=== PATIENT | male | born 1955 | race African-American/Black ===

== ENCOUNTER 2016-10-14 09:20 | Emergency (ER) | payer MEDICARE, MEDICAID ==
[~2016-10-14 09:20] MED LIST: Iopamidol 370 76% 100 ML VIAL ONE
[2016-10-14 10:09] LABS: #Basophils 0.1 thou/uL (0.0-0.2); #Lymphocytes 2.2 thou/uL (1.20-3.40); #Monocytes 0.7 thou/uL (0.11-0.59); #Neutrophils 5.7 thou/uL (1.40-6.50); %Eosinophils 0.5 % (0.0-10.0); %Lymphocytes 25.7 % (21.0-51.0); %Monocytes 8.1 % (0.0-10.0); %Neutrophils 64.7 % (42.0-75.0); Hemoglobin 13.2 g/dL (14.0-18.0); Mean Corpuscular HGB CONC 31.6 g/dL (32.0-36.0); Mean Corpuscular Hemoglobin 28.7 pg (27.0-31.0); Mean Corpuscular Volume 90.6 fl (80.0-94.0); Mean Platelet Volume 8.2 fL (7.4-10.4); Platelet Count 222 thou/uL (130-400); RBC Distribution Width 15.5 % (11.5-14.5); White Blood Cell (WBC) Count 8.7 thou/uL (4.8-10.8)
[2016-10-14 10:17] LABS: CKMB 1.3 ng/mL (0-6.6); Troponin I Less than 0.010 ng/mL (< 0.028)
[2016-10-14 10:31] LABS: PTT 24.8 SEC (22.9-36.1); Prothrombin Time 13.4 SEC (12.0-14.7)
[2016-10-14 10:32] LABS: ALT (SGPT) 12 U/L (0-55); AST (SGOT) 17 U/L (5-34); Albumin 3.8 g/dL (3.5-5.0); Alkaline Phosphatase 80 U/L (40-150); Anion Gap 14 mmol/L (10-20); BUN (Urea Nitrogen) 14 mg/dL (8.4-25.7); Bilirubin, Total 0.3 mg/dL (0.2-1.2); Calc. Creatinine Clearance 0 mL/min (70-130); Calcium 9.8 mg/dL (7.8-10.44); Carbon Dioxide 26 mmol/L (22-29); Chloride 105 mmol/L (98-107); Estimated GFR-MDRD 86; Globulin 3.2 g/dL (2.4-3.5); Glucose 89 mg/dL (70-105); Potassium 4.2 mmol/L (3.5-5.1); Sodium 141 mmol/L (136-145)
--- NOTE | 2016-10-14 10:50 | RAD ---
ONE VIEW CHEST: History: Left leg pain and swelling above the knee x 1 week. Comparison: 11-17-15 FINDINGS: Portable semi-upright chest demonstrates a normal cardiac silhouette. The pulmonary vessels and hilu m are normal. No mass. No consolidation. No pneumothorax or osseous abnormality. IMPRESSION: No acute cardiopulmonary process. POS: [facility]
--- NOTE | 2016-10-14 10:55 | ULT ---
LEFT LOWER EXTREMITY VENOUS ULTRASOUND WITH DOPPLER: Comparison: 11-18-15 History: Patient is on blood thinners. Left leg pain. History of DVT. Technique: Grayscale, color flow, doppler imaging with spectral wave form analysis performed of the left lower extremity venous system. FINDINGS: There is partial compressibility and echogenic material in the common femoral vein. There is absence of compressibility in the profunda femoral vein. There appears to be echogenic material. Flow is no vanessa. The proximal femoral vein is patent. There is echogenic material and partial compressibility of the mid and distal femoral vein. There is compressibility and flow in the popliteal vein. There is flow in the venous trifurcation. There is flow in the visualized posterior tibial vein. There is lourdes w in the iliac vein and greater saphenous vein. IMPRESSION: Echogenic material and partial compressibility involving the left lower extremity deep venous system as above. 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 POS: [facility]
--- NOTE | 2016-10-14 11:12 | CT ---
CT ANGIOGRAM OF THE CHEST: Date: 10/14/16 COMPARISON: 11/18/15. HISTORY: Left leg pain and swelling above the knee x1 week. Patient has a history of deep venous thrombosis. Exertional chest pain and shortness of breath. Patient has a history of previous pulmonary artery em boli. TECHNIQUE: CT angiogram of the chest performed in the axial plane. Coronal reformatted images of bilateral obli que three-dimensional maximum intensity projection images are submitted for interpretation. FINDINGS: No mediastinal mass, lymphadenopathy, or hematoma. Heart size is within normal limits. No pericardia l effusion. There are coronary artery calcifications. Visualized aorta has an overall normal caliber . There is atherosclerotic disease. No aneurysm or dissection. No periaortic fat stranding. The orig in of the great vessels of the neck are grossly unremarkable. There are nonspecific ground-glass opacities involving the dependent portion of both lower lobes. Ad ditional areas of scarring are noted in the left lower lobe and lingula. No mass. No consolidation. No pleural effusion or pneumothorax. Trachea and central bronchi are patent. Visualized upper solid abdominal organs are grossly unremarkable. There is adequate contrast opacification of the pulmonary arterial system to the level of the segmen nimco arteries. No filling defect to suggest thromboembolism. IMPRESSION: 1. Chronic changes of lung parenchyma. 2. No evidence of pulmonary artery embolism to the level of the segmental arteries. POS: [facility]
== END 2016-10-14 11:29 | disposition home or self-care (01) ==
LOC: NAV ERS 09:20
DX: I82.502 Chronic embolism and thrombosis of unspecified deep veins of left lower extremity (principal); I10 Essential (primary) hypertension; E78.5 Hyperlipidemia, unspecified; F17.210 Nicotine dependence, cigarettes, uncomplicated; Z79.899 Other long term (current) drug therapy
CPT/HCPCS: 71010; 71275; 80053; 82553; 84484; 85025; 85610; 85730; 93005

== ENCOUNTER 2017-02-25 11:24 | Emergency (ER) | payer MEDICARE ==
[2017-02-25 12:32] LABS: #Basophils 0.1 thou/uL (0.0-0.2); #Lymphocytes 1.8 thou/uL (1.20-3.40); #Monocytes 0.5 thou/uL (0.11-0.59); #Neutrophils 4.2 thou/uL (1.40-6.50); %Basophils 1.3 % (0.0-1.0); %Eosinophils 0.5 % (0.0-10.0); %Lymphocytes 27.4 % (21.0-51.0); %Monocytes 7.2 % (0.0-10.0); %Neutrophils 63.5 % (42.0-75.0); Hemoglobin 13.1 g/dL (14.0-18.0); Mean Corpuscular HGB CONC 31.6 g/dL (32.0-36.0); Mean Corpuscular Hemoglobin 28.6 pg (27.0-31.0); Mean Corpuscular Volume 90.4 fl (80.0-94.0); Mean Platelet Volume 7.7 fL (7.4-10.4); Platelet Count 218 thou/uL (130-400); RBC Distribution Width 15.4 % (11.5-14.5); Red Blood Cell (RBC) Count 4.57 mill/uL (4.70-6.10); White Blood Cell (WBC) Count 6.6 thou/uL (4.8-10.8)
[2017-02-25 12:40] LABS: ALT (SGPT) 11 U/L (8-55); AST (SGOT) 18 U/L (5-34); Albumin 3.6 g/dL (3.5-5.0); Alkaline Phosphatase 69 U/L (40-150); Anion Gap 12 mmol/L (10-20); BUN (Urea Nitrogen) 8 mg/dL (8.4-25.7); Bilirubin, Total 0.6 mg/dL (0.2-1.2); Calc. Creatinine Clearance 0 mL/min (70-130); Calcium 9.6 mg/dL (7.8-10.44); Carbon Dioxide 26 mmol/L (22-29); Chloride 105 mmol/L (98-107); Estimated GFR-MDRD Greater than 90; Globulin 2.8 g/dL (2.4-3.5); Glucose 134 mg/dL (70-105); Potassium 3.8 mmol/L (3.5-5.1); Protein, Total 6.4 g/dL (6.0-8.3); Sodium 139 mmol/L (136-145)
--- NOTE | 2017-02-25 12:50 | RAD ---
TWO VIEWS LEFT HIP 02/25/2017 HISTORY: Left hip pain. FINDINGS: There is osteoarthritis involving the left hip. No fracture or dislocation is seen. Vascular calci fications and phleboliths overlie the pelvis. IMPRESSION: Left hip osteoarthritis without evidence of an acute osseous abnormality. POS: [facility]
--- NOTE | 2017-02-25 12:54 | RAD ---
TWO VIEWS LEFT KNEE 02/25/2017 HISTORY: Bilateral leg pain greater on the left. FINDINGS: There is tricompartment osteophytosis. There is mild narrowing of the medial joint compartment as w ell as patellofemoral joint. Calcifications overlie the medial aspect of the medial joint compartme nt likely related to chondrocalcinosis. There is no fracture or dislocation seen. There is suggest ion of a small joint effusion. Vascular calcifications are seen in the region of the tibioperoneal vessels. No other findings. IMPRESSION: 1. Osteoarthritis and chondrocalcinosis. 2. No acute osseous abnormality. 3. Small joint effusion. POS: [facility]
== END 2017-02-25 13:03 | disposition home or self-care (01) ==
LOC: NAV ERS 11:24
DX: M16.12 Unilateral primary osteoarthritis, left hip (principal); M25.462 Effusion, left knee; E78.5 Hyperlipidemia, unspecified; I10 Essential (primary) hypertension; F17.210 Nicotine dependence, cigarettes, uncomplicated; Z79.891 Long term (current) use of opiate analgesic; Z79.01 Long term (current) use of anticoagulants; Z79.899 Other long term (current) drug therapy
CPT/HCPCS: 80053; 85025; 85379

== ENCOUNTER 2017-04-19 14:46 | Emergency (ER) | payer MEDICARE ==
[2017-04-19] MEDS ORDERED: Acetaminophen 500 MG TAB ONE (15:29)
--- NOTE | 2017-04-19 16:42 | RAD ---
RIGHT KNEE FOUR VIEWS: INDICATIONS: Injury. Right knee pain. FINDINGS: Mild to moderate osteoarthritis of the right knee is present. There is moderate joint capsular dist ention. Vascular calcifications are seen. No fracture or dislocation. IMPRESSION: 1. Moderate joint capsular distention. 2. Mild to moderate osteoarthritis. 3. No fracture or dislocation. POS: [facility]
== END 2017-04-19 16:07 | disposition home or self-care (01) ==
LOC: NAV ERS 14:46
DX: S89.91XA Unspecified injury of right lower leg, initial encounter (principal); I10 Essential (primary) hypertension; G89.29 Other chronic pain; F17.210 Nicotine dependence, cigarettes, uncomplicated; M54.9 Dorsalgia, unspecified; M19.90 Unspecified osteoarthritis, unspecified site; E78.5 Hyperlipidemia, unspecified; Z86.718 Personal history of other venous thrombosis and embolism; Z79.899 Other long term (current) drug therapy; W18.30XA Fall on same level, unspecified, initial encounter; Y92.009 Unspecified place in unspecified non-institutional (private) residence as the place of occurrence of the external cause

== ENCOUNTER 2018-09-09 19:16 | Emergency (ER) | payer MEDICARE, MEDICAID ==
[2018-09-09] MEDS ORDERED: Oxymetazoline HCl 0.05% ( 15 ML ) ONE (19:39)
[2018-09-09] MEDS ORDERED: cloNIDine 0.1 MG TAB ONE (19:39)
== END 2018-09-09 20:10 | disposition home or self-care (01) ==
LOC: NAV ERS 19:16
DX: R04.0 Epistaxis (principal); J06.9 Acute upper respiratory infection, unspecified; E78.5 Hyperlipidemia, unspecified; I10 Essential (primary) hypertension; M19.90 Unspecified osteoarthritis, unspecified site; F17.210 Nicotine dependence, cigarettes, uncomplicated; Z86.718 Personal history of other venous thrombosis and embolism; Z79.899 Other long term (current) drug therapy
CPT/HCPCS: 99283